=== PATIENT | male | born 1955 | race Two or more races ===

== ENCOUNTER 2020-06-23 14:09 | Inpatient (IN) | payer BC, MEDICARE ==
[~2020-06-23] VITALS: Ht 162.6 cm; Wt 68.7 kg
[2020-06-23 14:52] LABS: COLOR,URINE YELLOW (Yellow); GLUCOSE, URINE NEGATIVE (Neg); KETONES,URINE TRACE mg/dl (Neg); LEUKOCYTE ESTERASE ,URINE NEGATIVE (Neg); NITRITES, URINE NEGATIVE (Neg); OCCULT BLOOD,URINE MODERATE (Neg); PROTEIN,URINE NEGATIVE (Neg); UROBILINOGEN,URINE 0.2 E.U/dL (0.2-1.0)
[2020-06-23 14:58] LABS: UA COLLECTION TYPE CLN CATCH MIDSTREAM
[2020-06-23 14:59] LABS: CLARITY,URINE SLIGHTLY CLOUDY (Clear)
[2020-06-23 15:00] LABS: BACTERIA,URINE NONE SEEN /HPF (Neg); MUCUS STRANDS MANY /LPF (Neg); SQUAMOUS EPITHELIAL CELL,UR FEW /LPF (FEW); WBC,URINE 0-4 /HPF (0-4)
[2020-06-23 15:16] LABS: BASOPHILS # (AUTO) 0.1 X10'3 (0-0.2); BASOPHILS % (AUTO) 0.3 % (0-1); EOSINOPHILS % (AUTO) 0.2 % (0-6); HEMATOCRIT 41.8 % (42.0-52.0); LYMPHOCYTES # (AUTO) 0.9 X10'3 (1.1-4.8); LYMPHOCYTES % (AUTO) 5.3 % (21-51); MEAN CORPUSCULAR HEMOGLOBIN 28.4 PG (27.0-31.0); MEAN CORPUSCULAR HGB CONC 33.5 g/dL (33.0-36.5); MEAN PLATELET VOLUME 8.8 FL (7.4-10.4); MONOCYTES # (AUTO) 1.3 X10'3 (0-0.9); MONOCYTES % (AUTO) 7.7 % (2-12); NEUTROPHILS # (AUTO) 14.9 X10'3 (1.8-7.7); NEUTROPHILS % (AUTO) 86.5 % (42-75); PLATELET COUNT 282 X10'3 (140-440); RED BLOOD COUNT 4.92 X10'6 (4.70-6.10); RED CELL DISTRIBUTION WIDTH 13.3 % (11.5-14.5); WHITE BLOOD COUNT 17.2 X10'3 (4.5-11.0)
[2020-06-23 15:26] LABS: ALANINE AMINOTRANSFERASE 199 U/L (12-78); ALBUMIN 3.4 G/DL (3.4-5.0); ALBUMIN/GLOBULIN RATIO 0.9 (1.1-1.5); ALKALINE PHOSPHATASE 170 IU/L (46-116); ANION GAP 6 (8-16); ASPARTATE AMINO TRANSFERASE 139 U/L (10-37); BILIRUBIN,TOTAL 1.3 MG/DL (0.1-1.0); BLOOD UREA NITROGEN 12 MG/DL (7-18); BUN/CREATININE RATIO 8.6 (5.4-32.0); CALCIUM 8.6 MG/DL (8.5-10.1); CHLORIDE 103 MMOL/L (99-107); CREATININE 1.39 MG/DL (0.60-1.10); GLUCOSE 100 MG/DL (70-104); POTASSIUM 3.6 MMOL/L (3.5-5.1); SODIUM 137 MMOL/L (135-145); TOTAL CARBON DIOXIDE 27.8 MMOL/L (24-32); TOTAL PROTEIN 7.3 G/DL (6.4-8.2); eGFR 51 ML/MIN
--- NOTE | 2020-06-23 19:30 | NUR ---
PLACED IN ROOM , STABLE VS. PT REPORTS HE FEELS HE NEEDS TO URINAE BUT CANNOT. WILL BLADDER SCAN. AWAITING ER [facility]. REPROTS SYMPTOMS STARTED LAST WEEK WITH LOW BACK PAIN AND SOME HEMATURIA. SATTES HIS PAIN IS INTERMITTENT AND GOES FROM HIS LOW BACK AROUND HIS FLANKES AND TO HIS PERIUMBILICAL AREA ALSO RADIATES TO HIS UPPER THIGHS. HE IS POLITE AND COOPERATIVE.
[2020-06-23] MEDS ORDERED: CefTRIAXone/D5W-Rocephin 1gm 50 ML IV ONE (19:55)
[2020-06-23] MEDS ORDERED: iohexol 300mg/ml 100ml inj. ONE (20:02)
[2020-06-23] MEDS ORDERED: metroNIDAZOLE-Flagyl 500mg/NS 100 ML IV STA (20:56)
[2020-06-23 21:16] LABS: LIPASE 176 U/L (73-393)
[2020-06-23] MEDS ORDERED: NO HOME MEDS (22:23)
--- NOTE | 2020-06-23 22:25 | NUR ---
PT TO BE ADMITTED, TAKES NO HOME MEDS. DINORA GHOSPITALIST. FLAGYL AND ROCEFIN INFUSED. PT IW POLITE AND COOPERATIVE.
--- NOTE | 2020-06-23 23:20 | NUR ---
Patient requesting food, okay per Dr. Yanes, turkey sandwich and ice water given.
[2020-06-23] MEDS ORDERED: magnesium hydroxide 30ml (MOM) UD suspension PO PRN (23:25)
[2020-06-23] MEDS ORDERED: HYDROcodone/acetaminophen 5mg/325mg tablet PO PRN (23:25)
[2020-06-23] MEDS ORDERED: mag hydrox/Alum hydrox/simeth 30ml oral suspension PO PRN (23:25)
[2020-06-23] MEDS ORDERED: morphine 2 MG/ML inj. syringe IV PRN (23:25)
[2020-06-23] MEDS ORDERED: HYDROcodone/acetaminophen 10/325mg tab PO PRN (23:25)
[2020-06-23] MEDS ORDERED: acetaminophen 325mg tablet PO PRN ×2 (23:25)
--- NOTE | 2020-06-23 23:25 | NUR ---
dr olmstead at bedside for admission.
[2020-06-23] MEDS: dextrose 5%-1/2 normal saline 1,000 ML IV SCH (23:43)
[2020-06-24] VITALS (15 sets, daily range): BP systolic 102–148; BP diastolic 55–87
--- NOTE | 2020-06-24 00:11 | NUR ---
Received patient report from KARINA Serrato. Patient arrived to unit via wheelchair with his belongings in hand. Patient was not in any distress, ALOX4. Walked from w/c to bathroom without any assistance.Will continue to monitor.
[2020-06-24 05:11] LABS: ALANINE AMINOTRANSFERASE 142 U/L (12-78); ALBUMIN 2.9 G/DL (3.4-5.0); ALBUMIN/GLOBULIN RATIO 0.8 (1.1-1.5); ALKALINE PHOSPHATASE 149 IU/L (46-116); ANION GAP 3 (8-16); ASPARTATE AMINO TRANSFERASE 61 U/L (10-37); BLOOD UREA NITROGEN 17 MG/DL (7-18); BUN/CREATININE RATIO 13.3 (5.4-32.0); CALCIUM 8.3 MG/DL (8.5-10.1); CHLORIDE 105 MMOL/L (99-107); CREATININE 1.28 MG/DL (0.60-1.10); GLUCOSE 123 MG/DL (70-104); POTASSIUM 3.1 MMOL/L (3.5-5.1); SODIUM 138 MMOL/L (135-145); TOTAL PROTEIN 6.7 G/DL (6.4-8.2); eGFR 56 ML/MIN
[2020-06-24 05:20] LABS: BASOPHILS % (AUTO) 0.2 % (0-1); EOSINOPHILS # (AUTO) 0.2 X10'3 (0-0.9); EOSINOPHILS % (AUTO) 1.5 % (0-6); HEMATOCRIT 40.4 % (42.0-52.0); HEMOGLOBIN 13.4 g/dl (14.0-17.9); LYMPHOCYTES # (AUTO) 0.9 X10'3 (1.1-4.8); LYMPHOCYTES % (AUTO) 7.2 % (21-51); MEAN CORPUSCULAR HEMOGLOBIN 28.3 PG (27.0-31.0); MEAN CORPUSCULAR HGB CONC 33.1 g/dL (33.0-36.5); MEAN CORPUSCULAR VOLUME 85.4 FL (78-98); MEAN PLATELET VOLUME 8.9 FL (7.4-10.4); MONOCYTES % (AUTO) 8.1 % (2-12); NEUTROPHILS # (AUTO) 9.9 X10'3 (1.8-7.7); PLATELET COUNT 237 X10'3 (140-440); RED BLOOD COUNT 4.73 X10'6 (4.70-6.10); RED CELL DISTRIBUTION WIDTH 13.3 % (11.5-14.5); WHITE BLOOD COUNT 11.9 X10'3 (4.5-11.0)
--- NOTE | 2020-06-24 06:36 | NUR ---
Problems reprioritized. Patient report given, questions answered & plan of care reviewed with KARINA Deng.
--- NOTE | 2020-06-24 06:47 | NUR ---
Patient in room [facility]. I have received report from KARINA Ellis and had the opportunity to ask questions and assume patient care.
[2020-06-24] MEDS: piperacillin/tazo 4.5gm/100ml 100 ML IV SCH ×2 (08:03→17:13)
[2020-06-24] MEDS: K and/or MAG REPLACEMENT MC SCH ×2 (11:00→20:00)
[2020-06-24] MEDS ORDERED: magnesium Cl slow-release 64mg tablet PO PRN (11:05)
[2020-06-24] MEDS ORDERED: potassium Cl 20 mEq SR tablet PO PRN (11:05)
[2020-06-24] MEDS ORDERED: magnesium 4gm in 100ml NS 100 ML IV PRN (11:05)
[2020-06-24] MEDS: dextrose 5%-1/2 normal saline 1,000 ML IV SCH (11:44)
[2020-06-24] MEDS: potassium CL 10mEq/100ml bag 100 ML IV PRN ×4 (11:44→15:51)
[2020-06-24] MEDS ORDERED: fentaNYL/PF 50MCG/1 ML 2ML syringe ONE (17:53)
[2020-06-24] MEDS ORDERED: MIDAZolam 5mg/5ml vial ONE (17:54)
[2020-06-24] MEDS ORDERED: LIDOcaine Viscous 15ml cup ONE (17:54)
[2020-06-24] MEDS ORDERED: iohexol 300 MG/1 ML 50ml polymer ONE (17:54)
[2020-06-24] MEDS ORDERED: glucagon, human recombinant 1mg kit ONE (17:54)
[2020-06-24] MEDS ORDERED: diphenhydrAMINE 50 mg/ml inj ONE (17:54)
--- NOTE | 2020-06-24 18:22 | NUR ---
Patient in room [facility]. I have received report from KARINA Deng and had the opportunity to ask questions and assume patient care.
--- NOTE | 2020-06-24 18:57 | NUR ---
Problems reprioritized. Patient report given, questions answered & plan of care reviewed with KARINA Ellis. Pt cont to be NPO. No c/o pain or discomfort
--- NOTE | 2020-06-24 22:16 | NUR ---
2200 patient returned from his MRCP ALOX4, post op vitals are hooked up and patient is talking to his on phone
[2020-06-25] VITALS (8 sets, daily range): BP systolic 105–140; BP diastolic 71–101
[2020-06-25] MEDS: dextrose 5%-1/2 normal saline 1,000 ML IV SCH ×4 (00:01→20:27)
[2020-06-25] MEDS: piperacillin/tazo 4.5gm/100ml 100 ML IV SCH ×4 (00:14→23:49)
[2020-06-25] MEDS ORDERED: normal saline 1000ml 1,000 ML IV SCH (01:20)
[2020-06-25] MEDS: ondansetron/PF 4mg/2ml inj IV PRN ×2 (02:12→08:34)
[2020-06-25 05:28] LABS: BASOPHILS % (AUTO) 0 % (0-1); EOSINOPHILS % (AUTO) 0.1 % (0-6); HEMATOCRIT 40.8 % (42.0-52.0); HEMOGLOBIN 13.9 g/dl (14.0-17.9); LYMPHOCYTES # (AUTO) 0.5 X10'3 (1.1-4.8); LYMPHOCYTES % (AUTO) 3.5 % (21-51); MEAN CORPUSCULAR HEMOGLOBIN 28.8 PG (27.0-31.0); MEAN CORPUSCULAR HGB CONC 34.1 g/dL (33.0-36.5); MEAN CORPUSCULAR VOLUME 84.7 FL (78-98); MEAN PLATELET VOLUME 9.2 FL (7.4-10.4); MONOCYTES # (AUTO) 0.9 X10'3 (0-0.9); MONOCYTES % (AUTO) 6.3 % (2-12); NEUTROPHILS # (AUTO) 12.3 X10'3 (1.8-7.7); NEUTROPHILS % (AUTO) 90.1 % (42-75); PLATELET COUNT 252 X10'3 (140-440); RED BLOOD COUNT 4.81 X10'6 (4.70-6.10); RED CELL DISTRIBUTION WIDTH 13.2 % (11.5-14.5); WHITE BLOOD COUNT 13.6 X10'3 (4.5-11.0)
[2020-06-25 05:31] LABS: ALANINE AMINOTRANSFERASE 115 U/L (12-78); ALBUMIN/GLOBULIN RATIO 0.7 (1.1-1.5); ALKALINE PHOSPHATASE 170 IU/L (46-116); ANION GAP 5 (8-16); ASPARTATE AMINO TRANSFERASE 47 U/L (10-37); BILIRUBIN,TOTAL 1.4 MG/DL (0.1-1.0); BLOOD UREA NITROGEN 10 MG/DL (7-18); BUN/CREATININE RATIO 8.5 (5.4-32.0); CALCIUM 8.1 MG/DL (8.5-10.1); CHLORIDE 103 MMOL/L (99-107); CREATININE 1.17 MG/DL (0.60-1.10); GLUCOSE 157 MG/DL (70-104); POTASSIUM 3.4 MMOL/L (3.5-5.1); SODIUM 135 MMOL/L (135-145); TOTAL CARBON DIOXIDE 26.6 MMOL/L (24-32); TOTAL PROTEIN 7.1 G/DL (6.4-8.2); eGFR 63 ML/MIN
--- NOTE | 2020-06-25 06:11 | NUR ---
Problems reprioritized. Patient report given, questions answered & plan of care reviewed with KARINA Deng.
--- NOTE | 2020-06-25 06:28 | NUR ---
Patient in room [facility]. I have received report from KARINA Ellis and had the opportunity to ask questions and assume patient care.
[2020-06-25] MEDS: K and/or MAG REPLACEMENT MC SCH ×2 (08:00→20:00)
[2020-06-25] MEDS: Ursodiol 300mg capsule PO SCH ×2 (08:40→20:21)
[2020-06-25] MEDS: potassium Cl 20 mEq SR tablet PO PRN ×2 (10:05→16:05)
[2020-06-25] MEDS ORDERED: BUPIVAcaine/PF 2.5mg/ml (0.25%) 10ml vial ONE (17:06)
[2020-06-25] MEDS ORDERED: fentaNYL/PF 50MCG/1 ML 2ML syringe ONE (17:22)
[2020-06-25] MEDS ORDERED: midazolam 2 mg/2 ml injection ONE (17:23)
--- NOTE | 2020-06-25 17:37 | NUR ---
Pt out to OR for surgery. Report given to KARINA barboza.
[2020-06-25] MEDS ORDERED: SINCALIDE IV ONE (17:40)
[2020-06-25] MEDS ORDERED: NORMAL SALINE IV ONE (17:40)
--- NOTE | 2020-06-25 18:22 | NUR ---
Pt back to his room. surgery was not performed.
--- NOTE | 2020-06-25 18:27 | NUR ---
Problems reprioritized. Patient report given, questions answered & plan of care reviewed with KARINA Ellis.
--- NOTE | 2020-06-25 18:33 | NUR ---
I have received report from KARINA Deng and had the opportunity to ask questions and assume patient care.
[2020-06-25] MEDS: morphine 2 MG/ML inj. syringe IV PRN (20:23)
[2020-06-25] MEDS ORDERED: NORMAL SALINE IV PRN (20:35)
[2020-06-25] MEDS ORDERED: SINCALIDE IV PRN (20:35)
[2020-06-26] VITALS: BP 108/77
[2020-06-26] MEDS: dextrose 5%-1/2 normal saline 1,000 ML IV SCH (05:48)
[2020-06-26 06:09] LABS: BASOPHILS % (AUTO) 0.2 % (0-1); EOSINOPHILS # (AUTO) 0.1 X10'3 (0-0.9); EOSINOPHILS % (AUTO) 0.5 % (0-6); HEMATOCRIT 39.9 % (42.0-52.0); HEMOGLOBIN 13.1 g/dl (14.0-17.9); LYMPHOCYTES # (AUTO) 0.9 X10'3 (1.1-4.8); LYMPHOCYTES % (AUTO) 6.9 % (21-51); MEAN CORPUSCULAR HEMOGLOBIN 27.9 PG (27.0-31.0); MEAN CORPUSCULAR HGB CONC 32.7 g/dL (33.0-36.5); MEAN CORPUSCULAR VOLUME 85.3 FL (78-98); MEAN PLATELET VOLUME 9.7 FL (7.4-10.4); MONOCYTES # (AUTO) 0.9 X10'3 (0-0.9); MONOCYTES % (AUTO) 6.5 % (2-12); NEUTROPHILS # (AUTO) 11.4 X10'3 (1.8-7.7); NEUTROPHILS % (AUTO) 85.9 % (42-75); PLATELET COUNT 248 X10'3 (140-440); RED BLOOD COUNT 4.68 X10'6 (4.70-6.10); RED CELL DISTRIBUTION WIDTH 13.1 % (11.5-14.5); WHITE BLOOD COUNT 13.2 X10'3 (4.5-11.0)
--- NOTE | 2020-06-26 06:15 | NUR ---
Patient in room [facility]. I have received report from KARINA Ellis and had the opportunity to ask questions and assume patient care.
[2020-06-26 06:30] VITALS: BP 120/59
[2020-06-26 06:30] LABS: ALANINE AMINOTRANSFERASE 87 U/L (12-78); ALBUMIN 2.8 G/DL (3.4-5.0); ALBUMIN/GLOBULIN RATIO 0.7 (1.1-1.5); ALKALINE PHOSPHATASE 151 IU/L (46-116); ANION GAP 6 (8-16); ASPARTATE AMINO TRANSFERASE 22 U/L (10-37); BILIRUBIN,TOTAL 0.9 MG/DL (0.1-1.0); BLOOD UREA NITROGEN 8 MG/DL (7-18); BUN/CREATININE RATIO 6.5 (5.4-32.0); CALCIUM 8.5 MG/DL (8.5-10.1); CHLORIDE 103 MMOL/L (99-107); CREATININE 1.24 MG/DL (0.60-1.10); GLUCOSE 115 MG/DL (70-104); POTASSIUM 3.5 MMOL/L (3.5-5.1); SODIUM 137 MMOL/L (135-145); TOTAL CARBON DIOXIDE 27.6 MMOL/L (24-32); TOTAL PROTEIN 6.9 G/DL (6.4-8.2); eGFR 59 ML/MIN
--- NOTE | 2020-06-26 06:40 | NUR ---
Problems reprioritized. Patient report given, questions answered & plan of care reviewed with KARINA Martinez.
[2020-06-26] MEDS: K and/or MAG REPLACEMENT MC SCH (07:13)
[2020-06-26] MEDS: Ursodiol 300mg capsule PO SCH (08:19)
[2020-06-26] MEDS: piperacillin/tazo 4.5gm/100ml 100 ML IV SCH (08:20)
[2020-06-26] MEDS: morphine 2 MG/ML inj. syringe IV PRN (08:20)
[2020-06-26] MEDS ORDERED: morphine 4 MG/ML inj SYRINge IM ONE (12:20)
[2020-06-26] MEDS ORDERED: morphine 4 MG/ML inj SYRINge ONE (12:24)
[2020-06-26] MEDS ORDERED: URSO300C2 PO (16:41)
[2020-06-26] MEDS ORDERED: AMOX-422 PO (16:41)
--- NOTE | 2020-06-26 18:00 | NUR ---
DC inst provided to pt. IV DC'd, tip intact. All belongings sent w/pt. WC to front lobby.
[2020-06-26] MEDS ORDERED: lactobacillus rhamnosus 10,000 MMU CELLS/CAPSULE PO SCH (20:00)
== END 2020-06-26 18:05 | disposition home or self-care (01) | DRG 872 ==
LOC: ER 14:09 → ED HOLD 23:25 → SUR 3N 23:59
PROVIDERS: ADMIT Internal Medicine; ATTEND Family Medicine
PROC: BW211ZZ Computerized Tomography (CT Scan) of Abdomen and Pelvis using Low Osmolar Contrast (ICD-10-PCS; 2020-06-23)
PROC: 0FC98ZZ Extirpation of Matter from Common Bile Duct, Via Natural or Artificial Opening Endoscopic (ICD-10-PCS; principal; 2020-06-24)
PROC: 0F798DZ Dilation of Common Bile Duct with Intraluminal Device, Via Natural or Artificial Opening Endoscopic (ICD-10-PCS; 2020-06-24)
PROC: BF101ZZ Fluoroscopy of Bile Ducts using Low Osmolar Contrast (ICD-10-PCS; 2020-06-24)
PROC: CF1C1ZZ Planar Nuclear Medicine Imaging of Hepatobiliary System, All using Technetium 99m (Tc-99m) (ICD-10-PCS; 2020-06-26)
DX: A41.9 Sepsis, unspecified organism (principal); N17.9 Acute kidney failure, unspecified; K80.32 Calculus of bile duct with acute cholangitis without obstruction; M54.9 Dorsalgia, unspecified; E87.6 Hypokalemia; R31.9 Hematuria, unspecified; R74.0 Nonspecific elevation of levels of transaminase and lactic acid dehydrogenase [LDH]; R74.8 Abnormal levels of other serum enzymes; Z87.891 Personal history of nicotine dependence; Z90.49 Acquired absence of other specified parts of digestive tract
CPT/HCPCS: 36415; 43262; 43264; 43274; 74177; 76700; 78227; 80053; 81001; 82948; 83605; 83690; 84145; 85025; 87040; 87081; 93005; 99152; 99153; 99285; A4620; A9537; C1769; G0378; J0696; J1200; J1610; J2250; J2270; J2405; J2543; J3010; J3480; J3490; J7040; Q9967

== ENCOUNTER 2023-10-22 08:33 | Inpatient (IN) | payer BC ==
[~2023-10-22] VITALS: Ht 162.6 cm; Wt 70.5 kg
[~2023-10-22 08:33] MED LIST: NO HOME MEDS
[2023-10-22] MEDS ORDERED: morphine 4 MG/ML inj SYRINge IV ONE (09:00)
[2023-10-22] MEDS ORDERED: aspirin 325mg tablet PO ONE (09:00)
[2023-10-22] MEDS ORDERED: nitroGLYCERIN 1gm ointment UD TP ONE (09:00)
[2023-10-22 09:12] LABS: BASOPHILS # (AUTO) 0.1 X10'3 (0-0.2); EOSINOPHILS # (AUTO) 0.2 X10'3 (0-0.9); EOSINOPHILS % (AUTO) 2.3 % (0-6); HEMATOCRIT 45.1 % (42.0-52.0); HEMOGLOBIN 15.4 g/dl (14.0-17.9); LYMPHOCYTES # (AUTO) 2.4 X10'3 (1.1-4.8); LYMPHOCYTES % (AUTO) 24.8 % (21-51); MEAN CORPUSCULAR HEMOGLOBIN 28.7 PG (27.0-31.0); MEAN CORPUSCULAR HGB CONC 34.1 g/dL (33.0-36.5); MEAN CORPUSCULAR VOLUME 84.3 FL (78-98); MEAN PLATELET VOLUME 9.3 FL (7.4-10.4); MONOCYTES # (AUTO) 0.8 X10'3 (0-0.9); MONOCYTES % (AUTO) 8.1 % (2-12); NEUTROPHILS # (AUTO) 6.1 X10'3 (1.8-7.7); NEUTROPHILS % (AUTO) 63.8 % (42-75); PLATELET COUNT 228 X10'3 (140-440); RED BLOOD COUNT 5.35 X10'6 (4.70-6.10); RED CELL DISTRIBUTION WIDTH 13.6 % (11.5-14.5); WHITE BLOOD COUNT 9.6 X10'3 (4.5-11.0)
[2023-10-22 09:25] LABS: ALANINE AMINOTRANSFERASE 33 U/L (12-78); ALBUMIN 3.7 G/DL (3.4-5.0); ALBUMIN/GLOBULIN RATIO 0.9 (1.1-1.5); ALKALINE PHOSPHATASE 83 IU/L (46-116); ANION GAP 5 (8-16); ASPARTATE AMINO TRANSFERASE 30 U/L (10-37); BILIRUBIN,TOTAL 0.5 MG/DL (0.1-1.0); BLOOD UREA NITROGEN 19 MG/DL (7-18); BUN/CREATININE RATIO 16.5 (10.0-20.0); CALCIUM 9.2 MG/DL (8.5-10.1); CHLORIDE 102 MMOL/L (99-107); CREATININE 1.15 MG/DL (0.60-1.10); GLUCOSE 152 MG/DL (70-104); POTASSIUM 3.5 MMOL/L (3.5-5.1); SODIUM 137 MMOL/L (135-145); TOTAL CARBON DIOXIDE 30.2 MMOL/L (24-32); TOTAL PROTEIN 7.6 G/DL (6.4-8.2); eCRCL 51 ML/MIN; eGFR 63 ML/MIN
[2023-10-22 09:34] LABS: PRO BRAIN NATRIURETIC PEPTIDE < 30 PG/ML (0-125)
[2023-10-22] MEDS ORDERED: heparin 10,000 units/1 ML INJ IV ONE (09:35)
[2023-10-22 10:35] LABS: APTT 25 SECONDS (22-32); PROTHROMBIN TIME 10.3 SECONDS (9.0-12.0)
[2023-10-22] MEDS: heparin 25,000 UNIT/250ml bag 250 ML IV PRN (10:59)
[2023-10-22] MEDS ORDERED: nitroGLYCERIN 0.4mg SUBLingual tab SL PRN (11:00)
[2023-10-22] MEDS ORDERED: mag hydrox/Alum hydrox/simeth 30ml oral suspension PO PRN (11:00)
[2023-10-22] MEDS ORDERED: ondansetron/PF 4mg/2ml inj IV PRN (11:00)
[2023-10-22] MEDS ORDERED: magnesium hydroxide 30ml (MOM) UD suspension PO PRN (11:00)
[2023-10-22] MEDS ORDERED: acetaminophen 325mg tablet PO PRN (11:00)
[2023-10-22] MEDS ORDERED: morphine 2 MG/ML inj. syringe IV PRN ×2 (11:00)
[2023-10-22 12:35] VITALS: BP 90/68; PULSE 66; RESP 18; TEMP 97.8; O2SAT 96
[2023-10-22] MEDS: heparin 10,000 units/1 ML INJ IV PRN (17:36)
[2023-10-22 18:00] VITALS: BP 96/47; PULSE 70; RESP 18; TEMP 98.1; O2SAT 97
[2023-10-22 20:00] VITALS: RESP 18; O2SAT 97
[2023-10-22] MEDS: docusate sod 100mg capsule PO SCH (20:00)
[2023-10-22 22:00] VITALS: BP 94/44; PULSE 60; RESP 16; TEMP 98.2; O2SAT 97
[2023-10-23] VITALS (17 sets, daily range): BP systolic 85–146; BP diastolic 53–93; PULSE 63–88; RESP 8–18; TEMP 98.4–99.1; O2SAT 95–98
[2023-10-23] MEDS: heparin 10,000 units/1 ML INJ IV PRN (00:36)
--- NOTE | 2023-10-23 06:12 | NUR ---
Problems reprioritized. Patient report given, questions answered & plan of care reviewed with Francesco COLLINS. Pt stable at transfer of care
[2023-10-23 07:17] LABS: BASOPHILS % (AUTO) 0.5 % (0-1); EOSINOPHILS # (AUTO) 0.3 X10'3 (0-0.9); EOSINOPHILS % (AUTO) 3.1 % (0-6); HEMATOCRIT 43.6 % (42.0-52.0); HEMOGLOBIN 14.8 g/dl (14.0-17.9); LYMPHOCYTES # (AUTO) 1.9 X10'3 (1.1-4.8); MEAN CORPUSCULAR HEMOGLOBIN 28.7 PG (27.0-31.0); MEAN CORPUSCULAR VOLUME 84.3 FL (78-98); MEAN PLATELET VOLUME 9.6 FL (7.4-10.4); MONOCYTES # (AUTO) 0.7 X10'3 (0-0.9); MONOCYTES % (AUTO) 8.3 % (2-12); NEUTROPHILS # (AUTO) 5.7 X10'3 (1.8-7.7); NEUTROPHILS % (AUTO) 66.1 % (42-75); PLATELET COUNT 197 X10'3 (140-440); RED BLOOD COUNT 5.17 X10'6 (4.70-6.10); RED CELL DISTRIBUTION WIDTH 13.8 % (11.5-14.5); WHITE BLOOD COUNT 8.6 X10'3 (4.5-11.0)
[2023-10-23 07:26] LABS: ALBUMIN 3.4 G/DL (3.4-5.0); ANION GAP 7 (8-16); BLOOD UREA NITROGEN 19 MG/DL (7-18); BUN/CREATININE RATIO 15.6 (10.0-20.0); CALCIUM 9.1 MG/DL (8.5-10.1); CHLORIDE 103 MMOL/L (99-107); CHOL/HDL RATIO 4.3 (0.00-4.99); CHOLESTEROL 220 MG/DL (0-200); CREATININE 1.22 MG/DL (0.60-1.10); GLUCOSE 102 MG/DL (70-104); HDL CHOLESTEROL 51 MG/DL (35-60); LDL CHOLESTEROL 137 MG/DL (50-100); POTASSIUM 3.7 MMOL/L (3.5-5.1); SODIUM 138 MMOL/L (135-145); TOTAL CARBON DIOXIDE 28.1 MMOL/L (24-32); TRIGLYCERIDES 123 MG/DL (20-135); eCRCL 49 ML/MIN; eGFR 59 ML/MIN
[2023-10-23] MEDS: aspirin 81mg, enteric-coated 1 TAB TABLET.DR PO SCH (07:35)
[2023-10-23] MEDS: docusate sod 100mg capsule PO SCH ×2 (07:35→20:00)
[2023-10-23] MEDS: atorvastatin 20mg tablet PO SCH (10:09)
[2023-10-23] MEDS: heparin 25,000 UNIT/250ml bag 250 ML IV PRN (10:18)
[2023-10-23] MEDS ORDERED: LIDOcaine 1% (10mg/ml)w/preservative inj. 20ml MDV ONE (11:35)
[2023-10-23] MEDS ORDERED: iohexol 350 MG/ML 50ML vial IV ONE ×2 (11:35→12:27)
[2023-10-23] MEDS ORDERED: fentaNYL/PF 50MCG/1 ML 2ML syringe ONE (11:35)
[2023-10-23] MEDS ORDERED: iohexol 350MG/ML 100ml bottle IV ONE ×2 (11:35→12:08)
[2023-10-23] MEDS ORDERED: midazolam 1 mg/ML 2ml injection ONE (11:35)
[2023-10-23] MEDS ORDERED: diphenhydrAMINE 50 mg/ml inj ONE (11:53)
[2023-10-23] MEDS ORDERED: tirofiban 12.5mg in NS 250mL 250 ML IV ONE (12:09)
[2023-10-23] MEDS ORDERED: nitroGLYCERIN 500mcg/5mL D5W 5 ML IV ONE (12:12)
[2023-10-23] MEDS ORDERED: ticagrelor 90mg tablet ONE (12:31)
--- NOTE | 2023-10-23 13:14 | NUR ---
Received pt and report from canvas shop laborer. Sheath to right groin transduced to monitor, dressing CD&I, no s/s of bleeding, bruising or hematoma. PP+, cap refill WNL. no c/o pain or CP.
[2023-10-23] MEDS ORDERED: nitroGLYCERIN 0.4mg SUBLingual tab SL PRN (14:25)
[2023-10-23] MEDS ORDERED: proCHLORperazine 10 MG/2 ml inj IV PRN (14:25)
[2023-10-23] MEDS: normal saline 1000ml 1,000 ML IV SCH ×2 (14:25→21:35)
[2023-10-23] MEDS ORDERED: HYDROcodone/acetaminophen 10/325mg tab PO PRN (14:25)
[2023-10-23] MEDS ORDERED: OXAZEpam 15mg capsule PO PRN (14:25)
[2023-10-23] MEDS ORDERED: ondansetron/PF 4mg/2ml inj IV PRN (14:25)
[2023-10-23] MEDS ORDERED: HYDROcodone/acetaminophen 5mg/325mg tablet PO PRN (14:25)
--- NOTE | 2023-10-23 15:20 | NUR ---
Anjum moyer from [employer] analyst here to pull sheath and implant Angioseal.
--- NOTE | 2023-10-23 16:15 | NUR ---
Transferred pt via gurney to room 3012B, bedside report given to Francesco, right groin site visualized, dressing CD&I, no s/s of bleeding, bruising or hematoma. PP+ Addendum: 10/23/23 at 1640 by Sita Chun RN In addition to above report, report given to Francesco that pt must go home with home prescription for Brilinta, stent card, entry level lab technician pictures and discount card for Brilinta.
[2023-10-24 02:00] VITALS: BP 135/80; PULSE 80; RESP 14; TEMP 97.5; O2SAT 97
--- NOTE | 2023-10-24 06:41 | NUR ---
Problems reprioritized. Patient report given, questions answered & plan of care reviewed with Francesco COLLINS. Pt stable at transfer of care
[2023-10-24] MEDS ORDERED: FLU VACC QS2023-24(6MOS UP)/PF 60 MCG/0.5 ML SYRINGE IMVAC ONE (07:50)
[2023-10-24] MEDS ORDERED: ticagrelor 90mg tablet PO SCH (08:00)
[2023-10-24] MEDS: aspirin 81mg, enteric-coated 1 TAB TABLET.DR PO SCH (08:03)
[2023-10-24] MEDS: atorvastatin 20mg tablet PO SCH (08:03)
[2023-10-24] MEDS: docusate sod 100mg capsule PO SCH (08:03)
[2023-10-24 08:15] VITALS: RESP 18; O2SAT 98
[2023-10-24 08:38] LABS: BASOPHILS % (AUTO) 0.2 % (0-1); EOSINOPHILS # (AUTO) 0.2 X10'3 (0-0.9); EOSINOPHILS % (AUTO) 1.6 % (0-6); HEMATOCRIT 43.2 % (42.0-52.0); HEMOGLOBIN 14.5 g/dl (14.0-17.9); LYMPHOCYTES # (AUTO) 1.5 X10'3 (1.1-4.8); MEAN CORPUSCULAR HEMOGLOBIN 28.5 PG (27.0-31.0); MEAN CORPUSCULAR HGB CONC 33.6 g/dL (33.0-36.5); MEAN CORPUSCULAR VOLUME 84.9 FL (78-98); MEAN PLATELET VOLUME 9.4 FL (7.4-10.4); MONOCYTES # (AUTO) 0.8 X10'3 (0-0.9); MONOCYTES % (AUTO) 7.4 % (2-12); NEUTROPHILS # (AUTO) 8.2 X10'3 (1.8-7.7); NEUTROPHILS % (AUTO) 76.8 % (42-75); PLATELET COUNT 215 X10'3 (140-440); RED BLOOD COUNT 5.09 X10'6 (4.70-6.10); RED CELL DISTRIBUTION WIDTH 13.9 % (11.5-14.5); WHITE BLOOD COUNT 10.7 X10'3 (4.5-11.0)
[2023-10-24 08:45] LABS: ALBUMIN 3.4 G/DL (3.4-5.0); ANION GAP 6 (8-16); BLOOD UREA NITROGEN 15 MG/DL (7-18); BUN/CREATININE RATIO 13.2 (10.0-20.0); CALCIUM 8.7 MG/DL (8.5-10.1); CHLORIDE 105 MMOL/L (99-107); CREATININE 1.14 MG/DL (0.60-1.10); GLUCOSE 103 MG/DL (70-104); POTASSIUM 3.7 MMOL/L (3.5-5.1); SODIUM 137 MMOL/L (135-145); eCRCL 52 ML/MIN; eGFR 64 ML/MIN
[2023-10-24] MEDS ORDERED: NITR0.4T51 SL (10:44)
[2023-10-24] MEDS ORDERED: ASPI-1071 PO (10:44)
[2023-10-24] MEDS ORDERED: TICA90TA PO (10:44)
[2023-10-24] MEDS ORDERED: METO-395 PO (10:44)
[2023-10-24] MEDS ORDERED: ATOR20TA66 PO (10:44)
[2023-10-24 11:15] VITALS: BP 158/84; PULSE 81; RESP 15; TEMP 97.9; O2SAT 97
== END 2023-10-24 12:05 | disposition home or self-care (01) | DRG 321 ==
LOC: ER 08:33 → PCU 3S 11:00
PROVIDERS: ADMIT Internal Medicine; ATTEND Internal Medicine
PROC: 027035Z Dilation of Coronary Artery, One Artery with Two Drug-eluting Intraluminal Devices, Percutaneous Approach (ICD-10-PCS; principal; 2023-10-23)
PROC: 4A023N7 Measurement of Cardiac Sampling and Pressure, Left Heart, Percutaneous Approach (ICD-10-PCS; 2023-10-23)
PROC: B2111ZZ Fluoroscopy of Multiple Coronary Arteries using Low Osmolar Contrast (ICD-10-PCS; 2023-10-23)
PROC: B2151ZZ Fluoroscopy of Left Heart using Low Osmolar Contrast (ICD-10-PCS; 2023-10-23)
PROC: B41F1ZZ Fluoroscopy of Right Lower Extremity Arteries using Low Osmolar Contrast (ICD-10-PCS; 2023-10-23)
DX: I21.4 Non-ST elevation (NSTEMI) myocardial infarction (principal); N17.0 Acute kidney failure with tubular necrosis; I25.10 Atherosclerotic heart disease of native coronary artery without angina pectoris; E86.0 Dehydration; Z90.49 Acquired absence of other specified parts of digestive tract; Z87.891 Personal history of nicotine dependence
CPT/HCPCS: 93306; 93458; 96365; 96375; 99291; C9600; 36415; 71045; 80048; 80053; 80061; 83880; 84484; 85025; 85347; 85610; 85730; 90686; 99152; 99153; A6258; C1751; C1760; C1769; C1874; J1200; J1644; J2250; J3010; J3246; J3490; J7030; J7040; Q9967